=== PATIENT | male | born 1960 ===

== ENCOUNTER 2020-09-30 12:26 | Inpatient (IN) | payer OTHER ==
[~2020-09-30] VITALS: Ht 175.3 cm; Wt 94.0 kg
[2020-09-30] MEDS ORDERED: DIPH,PERTUSS(ACELL),TET VAC/PF 0.5 ML IM-VACC ONE ×2 (14:30→14:54)
--- NOTE | 2020-09-30 15:00 | NUR ---
Pt states problem with R eye vision for three years. Visual sommer assessed, no abnormalities. Pt now states problems with vision for [address] VS updated.
[2020-09-30] MEDS ORDERED: SODIUM CHLORIDE FLUSH 10ML SYR IVF ONE (16:00)
--- NOTE | 2020-09-30 16:15 | NUR ---
Multiple attempts to leave room. Not following directions well. Provided with PO fluids. VS updated. Will monitor.
--- NOTE | 2020-09-30 16:23 | NUR ---
Pt updated on POC, family at bedside. VS updated.
[2020-09-30] MEDS ORDERED: MELATONIN 5 MG TABLET PO PRN (17:00)
[2020-09-30] MEDS ORDERED: DOCUSATE 100 MG CAPSULE PO PRN (17:00)
[2020-09-30] MEDS ORDERED: LORazepam 1MG TABLET PO PRN ×6 (17:00)
[2020-09-30] MEDS: DIAZEPAM 5 MG TABLET PO SCH ×2 (17:00→23:00)
[2020-09-30] MEDS ORDERED: ACETAMINOPHEN 325 MG TABLET PO PRN (17:00)
[2020-09-30] MEDS ORDERED: ONDANSETRON 2MG/ML, 2ML IVPush PRN (17:00)
[2020-09-30] MEDS ORDERED: DIAZEPAM 10 MG TABLET PO SCH (17:00)
[2020-09-30] MEDS ORDERED: DIAZEPAM 5 MG TABLET PO SCH (17:00)
[2020-09-30] MEDS ORDERED: LORazepam 0.5MG TABLET PO PRN ×2 (17:00)
[2020-09-30] MEDS: LACTATED RINGERS 1,000 ML IV SCH ×4 (17:00→20:36)
[2020-09-30] MEDS ORDERED: OXYcodone IR 5MG TABLET PO PRN (17:00)
[2020-09-30] MEDS ORDERED: LORazepam 2 MG/ML, 1ML IV PRN ×8 (17:00)
--- NOTE | 2020-09-30 17:04 | NUR ---
PT PLACED IN GOWN.
[2020-09-30 17:09] LABS: BASOPHILS % (AUTO) 1 % (0-1); EOSINOPHILS % (AUTO) 0 % (1-7); LYMPHOCYTES % (AUTO) 43 % (22-44); MEAN CORPUSCULAR HEMOGLOBIN 32.6 pg (27.5-34.5); MONOCYTES % (AUTO) 5 % (2-9); NEUTROPHILS % (AUTO) 51 % (42-75); PLATELET COUNT 174 x10^3/uL (130-400); RED BLOOD COUNT 5.15 x10^6/uL (4.38-5.82); RED CELL DISTRIBUTION WIDTH 13.5 % (9.4-14.8)
[2020-09-30 17:18] LABS: ALANINE AMINOTRANSFERASE 126 U/L (12-78); ALBUMIN 4.6 g/dL (3.4-5.0); ANION GAP 19 mmol/L (5-15); CALCIUM 8.5 mg/dL (8.5-10.1); CHLORIDE 96 mmol/L (98-107)
[2020-09-30 17:21] LABS: ALKALINE PHOSPHATASE 55 U/L (45-117); BILIRUBIN,TOTAL 0.8 mg/dL (0.2-1.0); CREATININE 0.74 mg/dL (0.7-1.3); TOTAL PROTEIN 8.1 g/dL (6.4-8.2); TROPONIN I < 0.015 ng/mL (0.000-0.045)
[2020-09-30 17:22] LABS: MD NO
[2020-09-30 17:27] LABS: FREE T4 (FREE THYROXINE) 0.74 ng/dL (0.76-1.46)
[2020-09-30] MEDS ORDERED: LIDODERM 5% PATCH TD SCH (17:30)
[2020-09-30 17:33] LABS: INTERNATIONAL NORMALIZED RATIO 0.95 (0.93-1.1); PROTHROMBIN TIME 10.2 Seconds (9.6-11.5)
[2020-09-30] MEDS: DIAZEPAM 10 MG TABLET PO SCH ×2 (17:53→22:39)
[2020-09-30] MEDS ORDERED: LABETALOL 5MG/ML, 20ML IVPush PRN (18:00)
[2020-09-30 18:36] VITALS: BP 175/105
[2020-09-30 19:18] LABS: MICROSCOPIC NOT IND
[2020-09-30] MEDS: FAMOTIDINE 20 MG TABLET PO SCH (20:36)
[2020-09-30] MEDS: INSULIN LISPRO 100 UNITS/ML, PEN SQ-INSULIN SCH (20:39)
[2020-10-01] MEDS: LACTATED RINGERS 1,000 ML IV SCH ×5 (01:00→09:00)
[2020-10-01 03:40] LABS: BASOPHILS % (AUTO) 1 % (0-1); EOSINOPHILS % (AUTO) 0 % (1-7); LYMPHOCYTES % (AUTO) 41 % (22-44); MEAN CORPUSCULAR HEMOGLOBIN 32.3 pg (27.5-34.5); MEAN CORPUSCULAR HGB CONC 34.7 g/dL (33.2-36.2); MONOCYTES % (AUTO) 9 % (2-9); NEUTROPHILS % (AUTO) 49 % (42-75); PLATELET COUNT 132 x10^3/uL (130-400); RED BLOOD COUNT 4.55 x10^6/uL (4.38-5.82); RED CELL DISTRIBUTION WIDTH 13.8 % (9.4-14.8)
[2020-10-01 03:44] LABS: MD NO
[2020-10-01 03:52] LABS: ALANINE AMINOTRANSFERASE 102 U/L (12-78); ALBUMIN 3.7 g/dL (3.4-5.0); ANION GAP 12 mmol/L (5-15); CALCIUM 8.1 mg/dL (8.5-10.1); CHLORIDE 99 mmol/L (98-107); CREATININE 0.84 mg/dL (0.7-1.3)
[2020-10-01 03:55] LABS: ALKALINE PHOSPHATASE 42 U/L (45-117); BILIRUBIN,TOTAL 0.8 mg/dL (0.2-1.0); TOTAL PROTEIN 6.9 g/dL (6.4-8.2)
[2020-10-01] MEDS: DIAZEPAM 5 MG TABLET PO SCH (05:00)
[2020-10-01] MEDS: DIAZEPAM 10 MG TABLET PO SCH (05:52)
[2020-10-01] MEDS: INSULIN LISPRO 100 UNITS/ML, PEN SQ-INSULIN SCH (06:37)
[2020-10-01] MEDS: FAMOTIDINE 20 MG TABLET PO SCH (07:48)
[2020-10-01] MEDS ORDERED: metFORMIN 850 MG TABLET PO SCH (08:00)
[2020-10-01] MEDS ORDERED: LISINOPRIL 20 MG TABLET PO SCH (09:00)
[2020-10-01] MEDS ORDERED: THIAMINE 200 MG in SODIUM CHLORIDE 0.9% 50 ML IV SCH (09:00)
[2020-10-01] MEDS ORDERED: METF850T PO (09:27)
[2020-10-01] MEDS ORDERED: LISI-170 PO (09:27)
[2020-10-01] MEDS ORDERED: DIAZEPAM 5 MG TABLET PO SCH (17:00)
== END 2020-10-01 10:15 | disposition home or self-care (01) | DRG 86 ==
LOC: ED 14:00 → EDIP 15:36 → CCU 17:29 → DCLOUNGE 10-01 10:08
PROVIDERS: ADMIT Hospitalist; ATTEND Hospitalist
DX: S06.5X0A Traumatic subdural hemorrhage without loss of consciousness, initial encounter (principal); E87.1 Hypo-osmolality and hyponatremia; E87.2 Acidosis; E11.21 Type 2 diabetes mellitus with diabetic nephropathy; E11.65 Type 2 diabetes mellitus with hyperglycemia; F10.229 Alcohol dependence with intoxication, unspecified; F32.9 Major depressive disorder, single episode, unspecified; I10 Essential (primary) hypertension; R74.01 Elevation of levels of liver transaminase levels; W18.39XA Other fall on same level, initial encounter; Y90.9 Presence of alcohol in blood, level not specified; K42.9 Umbilical hernia without obstruction or gangrene; S01.91XA Laceration without foreign body of unspecified part of head, initial encounter; Z79.82 Long term (current) use of aspirin; Z83.3 Family history of diabetes mellitus; Y93.89 Activity, other specified; Y92.89 Other specified places as the place of occurrence of the external cause; Y99.8 Other external cause status; Z79.899 Other long term (current) drug therapy
CPT/HCPCS: 36415; 70450; 71045; 80053; 80320; 81003; 82962; 83036; 83690; 83735; 84100; 84439; 84443; 84484; 85025; 85610; 85730; 87081; 90471; 90715; 93005; 96374; 99285; G0378; G0480; J1815; J7120